=== PATIENT | female | born 1970 | race Hispanic/Latino ===

== ENCOUNTER 2020-11-11 11:33 | Outpatient (CLI) | payer BC ==
[2020-11-11 12:37] LABS: Hematocrit 24.2 % (30.3-42.9); Hemoglobin 8.4 gm/dl (10.1-14.3); Mean Corpuscular HGB Conc 35 % (30-34); Mean Corpuscular Volume 88 fl (79-97); Platelet Count 121 K/mm3 (140-440); Red Blood Count 2.75 M/mm3 (3.65-5.03); Red Cell Distribution Width 13.2 % (13.2-15.2)
[2020-11-11 12:57] LABS: Blood Urea Nitrogen 13 mg/dL (7-17); Calcium 9.1 mg/dL (8.4-10.2); Hemolysis Index 83
[2020-11-11 12:58] LABS: BUN/Creatinine Ratio 33
[2020-11-11 13:12] LABS: Alanine Aminotransferase < 5 units/L (7-56)
== END 2020-11-11 11:34 | disposition home or self-care (01) ==
LOC: LAB 11:33
PROVIDERS: ATTEND Surgery
DX: R10.32 Left lower quadrant pain (principal)
CPT/HCPCS: 36415; 80053; 85027

== ENCOUNTER 2020-12-08 10:46 | Outpatient (CLI) | payer BC ==
--- NOTE | 2020-12-08 12:59 | Magnetic Resonance Report ---
MRI CERVICAL SPINE 12/08/2020 INDICATION / CLINICAL INFORMATION: Neck pain. Radiculopathy.. COMPARISON: None available. FINDINGS: GENERAL OBSERVATIONS: Unenhanced MR images of the cervical spine were obtained. There is no evidence of acute abnormality. There is no evidence of spinal cord compression or intrinsic spinal cord abnormality. [id number] ANALYSIS: C7-T1: Unremarkable. C6-7: Minimal diffuse disc bulging. C5-6: Mild symmetric diffuse disc bulging. C4-5: Minimal diffuse disc bulging. C3-4: Unremarkable. C2-3: Unremarkable. CRANIO-CERVICAL JUNCTION: Unremarkable. BONE MARROW: No significant abnormality. PARASPINAL SOFT TISSUES: No significant abnormality. IMPRESSION: Minimal degenerative change. No evidence of stenosis or nerve root compression. Signer Name: Floyd De La Rosa MD Signed: 12/08/2020 12:54 PM Workstation Name: [id number]
== END 2020-12-08 10:47 | disposition home or self-care (01) ==
LOC: MRI 10:46
DX: M50.123 Cervical disc disorder at C6-C7 level with radiculopathy (principal); M50.122 Cervical disc disorder at C5-C6 level with radiculopathy; M50.121 Cervical disc disorder at C4-C5 level with radiculopathy; M47.812 Spondylosis without myelopathy or radiculopathy, cervical region
CPT/HCPCS: 72141

== ENCOUNTER 2021-01-12 17:44 | Emergency (ER) | payer BC ==
[2021-01-12] MEDS ORDERED: ASPIRIN 325 MG TAB PO ONE (18:03)
--- NOTE | 2021-01-12 18:27 | Emergency Department Report ---
ED Chest Pain HPI - General Chief Complaint: Chest Pain Stated Complaint: HEART RATE 128-167, BACK PAIN, CHEST PAIN Time Seen by Provider: 01/12/21 17:59 Source: patient Mode of arrival: Ambulatory Limitations: No Limitations - History of Present Illness Initial Comments: 50-year-old female, history of hypertension, diabetes, lung cancer status post lobectomy in 2019, anxiety, presents to ED with chest pain. Patient states she awoke from her nap feeling as if her heart was racing, with associated chest discomfort and shortness of breath. Patient also reports some nausea and diaphoresis. Patient states she checked her vitals with the pulse ox machine and found that her heart rate was in the 150s. Patient states she has had episodes in the past sinus tachycardia for no apparent reason. Patient currently denies any cough or fever, leg pain or swelling. Patient reports increased anxiety and the need to take her BuSpar over the last couple of days. Patient states she has been overwhelmed recently with the recent events in this country, including COVID-19, political and racial tensions. Patient has received both doses of [employer] COVID-19 vaccine. 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 MD Complaint: chest pain -: This evening Onset: awoke with symptoms Pain Location: substernal Pain Radiation: none Severity: moderate Quality: other ("Discomfort ") Consistency: constant Improves With: nothing Worsens With: nothing re: nausea, diaphoresis, dyspnea. denies: vomting Other Symptoms: palpitations. denies: cough, fever, syncope, leg swelling Treatments Prior to Arrival: none - Related Data Home Medications Medication Instructions Recorded Confirmed Last Taken AtorvaSTATin [Lipitor] 20 mg PO QHS 01/12/21 01/12/21 Unknown DULoxetine [Cymbalta] 60 mg PO QDAY 01/12/21 01/12/21 Unknown Gabapentin [Neurontin] 1,200 mg PO BID 01/12/21 01/12/21 Unknown Hyoscyamine Sulfate 0.125 mg PO TID 01/12/21 01/12/21 Unknown Insulin Degludec [Tresiba] 25 unit SQ QHS 01/12/21 01/12/21 Unknown Lispro Insulin [HumaLOG] 0 unit SQ ACHS 01/12/21 01/12/21 Unknown Losartan [Cozaar] 100 mg PO QDAY 01/12/21 01/12/21 Unknown Metoprolol [Lopressor TAB] 50 mg PO QDAY 01/12/21 01/12/21 Unknown Ondansetron (Nf) [Zofran TAB] 8 mg PO Q8HR PRN 01/12/21 01/12/21 Unknown Pantoprazole [Protonix] 40 mg PO QDAY 01/12/21 01/12/21 Unknown amLODIPine [Norvasc] 5 mg PO DAILY 01/12/21 01/12/21 Unknown busPIRone [Buspar] 5 mg PO BID 01/12/21 01/12/21 Unknown traZODone [Desyrel] 50 mg PO QHS 01/12/21 01/12/21 Unknown Allergies Allergy/AdvReac Type Severity Reaction Status Date / Time clonidine AdvReac Rash Verified 01/12/21 17:52 Heart Score - HEART Score History: Slightly suspicious EKG: Normal Age: 45-65 Risk factors: 1-2 risk factors Troponin: < normal limit HEART Score: 2 - EKG Read Time Time EKG Completed: 17:54 EKG Read Time: 17:59 ED Review of Systems ROS: Stated complaint: HEART RATE 128-167, BACK PAIN, CHEST PAIN Other details as noted in HPI Comment: All other systems reviewed and negative Constitutional: denies: chills, fever Respiratory: shortness of breath Cardiovascular: chest pain, palpitations Gastrointestinal: nausea Musculoskeletal: other (Denies leg pain and swelling) Psychiatric: anxiety ED Past Medical Hx - Past Medical History Hx Hypertension: Yes Hx Diabetes: Yes Additional medical history: sinus tachycardia - Social History Smoking Status: Never Smoker Substance Use Type: None - Medications Home Medications: Home Medications Medication Instructions Recorded Confirmed Last Taken Type AtorvaSTATin [Lipitor] 20 mg PO QHS 01/12/21 01/12/21 Unknown History DULoxetine [Cymbalta] 60 mg PO QDAY 01/12/21 01/12/21 Unknown History Gabapentin [Neurontin] 1,200 mg PO BID 01/12/21 01/12/21 Unknown History Hyoscyamine Sulfate 0.125 mg PO TID 01/12/21 01/12/21 Unknown History Insulin Degludec [Tresiba] 25 unit SQ QHS 01/12/21 01/12/21 Unknown History Lispro Insulin [HumaLOG] 0 unit SQ ACHS 01/12/21 01/12/21 Unknown History Losartan [Cozaar] 100 mg PO QDAY 01/12/21 01/12/21 Unknown History Metoprolol [Lopressor TAB] 50 mg PO QDAY 01/12/21 01/12/21 Unknown History Ondansetron (Nf) [Zofran TAB] 8 mg PO Q8HR PRN 01/12/21 01/12/21 Unknown History Pantoprazole [Protonix] 40 mg PO QDAY 01/12/21 01/12/21 Unknown History amLODIPine [Norvasc] 5 mg PO DAILY 01/12/21 01/12/21 Unknown History busPIRone [Buspar] 5 mg PO BID 01/12/21 01/12/21 Unknown History traZODone [Desyrel] 50 mg PO QHS 01/12/21 01/12/21 Unknown History ED Physical Exam - General Limitations: No Limitations General appearance: alert, in no apparent distress - Head Head exam: Present: atraumatic, normocephalic - Eye Eye exam: Present: normal appearance, EOMI - ENT ENT exam: Present: mucous membranes moist - Neck Neck exam: Present: normal inspection - Respiratory Respiratory exam: Present: normal lung sounds bilaterally, other (tachypnea present). Absent: respiratory distress - Cardiovascular Cardiovascular Exam: Present: normal rhythm, tachycardia - GI/Abdominal GI/Abdominal exam: Present: soft. Absent: distended, tenderness - Extremities Exam Extremities exam: Present: normal inspection. Absent: pedal edema, calf tenderness - Neurological Exam Neurological exam: Present: alert, oriented X3 - Psychiatric Psychiatric exam: Present: anxious - Skin Skin exam: Present: warm, dry, intact, normal color ED Course Vital Signs 01/12/21 01/12/21 01/12/21 17:49 18:20 18:32 Pulse Rate 139 H 121 H 119 H Respiratory 32 H 25 H 27 H Rate Blood Pressure 207/112 Blood Pressure 130/89 [Right] O2 Sat by Pulse 96 98 99 Oximetry 01/12/21 01/12/21 01/12/21 19:00 19:16 19:30 Pulse Rate 114 H 106 H 108 H Respiratory 19 37 H 25 H Rate Blood Pressure 142/95 143/91 149/97 Blood Pressure [Right] O2 Sat by Pulse 97 95 99 Oximetry 01/12/21 01/12/21 01/12/21 19:46 20:00 20:16 Pulse Rate 111 H 112 H 110 H Respiratory 25 H 24 21 Rate Blood Pressure 149/97 149/97 185/101 Blood Pressure [Right] O2 Sat by Pulse 98 94 94 Oximetry 01/12/21 01/12/21 01/12/21 20:30 20:46 21:00 Pulse Rate 111 H 113 H 110 H Respiratory 20 22 22 Rate Blood Pressure 170/97 185/101 157/86 Blood Pressure [Right] O2 Sat by Pulse 95 92 93 Oximetry 01/12/21 01/12/21 01/12/21 21:16 21:30 21:46 Pulse Rate 112 H 113 H 109 H Respiratory 20 25 H 21 Rate Blood Pressure 170/97 166/89 166/89 Blood Pressure [Right] O2 Sat by Pulse 93 92 94 Oximetry 01/12/21 01/12/21 01/12/21 22:00 22:16 22:30 Pulse Rate 115 H 119 H Respiratory 18 28 H Rate Blood Pressure 178/98 166/89 175/103 Blood Pressure [Right] O2 Sat by Pulse 96 97 96 Oximetry 01/12/21 01/12/21 01/12/21 22:46 22:51 23:00 Pulse Rate 120 H 124 H 113 H Respiratory 26 H 32 H Rate Blood Pressure 178/98 179/104 172/99 Blood Pressure [Right] O2 Sat by Pulse 97 93 Oximetry 01/12/21 01/12/21 01/13/21 23:16 23:30 00:19 Pulse Rate 111 H 104 H 89 Respiratory 24 31 H 18 Rate Blood Pressure 172/99 157/93 Blood Pressure 167/92 [Right] O2 Sat by Pulse 95 94 94 Oximetry ED Medical Decision Making - Lab Data Result diagrams: 01/12/21 18:09 01/12/21 18:15 - EKG Data -: EKG Interpreted by [facility] EKG shows normal: sinus rhythm, axis, intervals, QRS complexes, ST-T waves Rate: tachycardia (rate 121) - EKG Data Interpretation: no acute changes - Radiology Data Radiology results: report reviewed, image reviewed - Medical Decision Making 50-year-old female presents to ED with palpitations, chest discomfort, and shortness of breath. EKG shows sinus tachycardia without any ST changes. D- dimer is normal. O2 sats are normal. Patient is in no respiratory distress. Patient's tachypnea seems to be more hyperventilation. Patient reports that she has been more stressed and anxious lately. This is likely contributing to her symptoms. Patient given 1 L of fluid and IV Ativan. Repeat troponin has been ordered. If second troponin is normal and patient is feeling better I believe patient can be discharged home. Will fax her information to the [facility] for urgent cardiology follow-up. Patient has been signed out to Dr. Miller for dispo. - Differential Diagnosis Anxiety, ACS, PE Critical care attestation.: If time is entered above; I have spent that time in minutes in the direct care of this critically ill patient, excluding procedure time. ED Disposition Clinical Impression: Chest pain, Anxiety Disposition: DC-01 TO HOME OR SELFCARE Is pt being admited?: No Condition: Stable Instructions: Nonspecific Chest Pain, Adult, Managing Anxiety, Adult Referrals: PRIMARY [facility] [Referring] - 3-5 Days ADEN WEINSTEIN MD [Staff Physician] - 3-5 Days Forms: Work/School Release Form(ED)
[2021-01-12 18:29] LABS: Basophils # (Auto) 0.1 K/mm3 (0.0-0.1); Basophils % (Auto) 0.5 % (0.0-1.8); Eosinophils % (Auto) 0.3 % (0.0-4.3); Hematocrit 41.6 % (30.3-42.9); Hemoglobin 14.8 gm/dl (10.1-14.3); Lymphocytes # (Auto) 1.5 K/mm3 (1.2-5.4); Lymphocytes % (Auto) 13.3 % (13.4-35.0); Mean Corpuscular HGB Conc 36 % (30-34); Mean Corpuscular Volume 86 fl (79-97); Monocytes # (Auto) 0.6 K/mm3 (0.0-0.8); Platelet Count 249 K/mm3 (140-440); Red Blood Count 4.86 M/mm3 (3.65-5.03); Red Cell Distribution Width 13.4 % (13.2-15.2)
--- NOTE | 2021-01-12 18:33 | XRay Report ---
CHEST 1 VIEW INDICATION: sob COMPARISON: None FINDINGS: Support devices: None Heart: Normal Lungs/Pleura: No acute pulmonary or pleural findings. IMPRESSION: 1. No acute disease. Signer Name: Suhas Gibson MD Signed: 01/12/2021 6:28 PM Workstation Name: [id number]
[2021-01-12 18:43] LABS: INR 0.88 (0.87-1.13); Partial Thromboplastin Time 30.5 Sec. (24.2-36.6)
[2021-01-12 18:44] LABS: Blood Urea Nitrogen 13 mg/dL (7-17); Hemolysis Index 22
[2021-01-12 18:50] LABS: BUN/Creatinine Ratio 19
[2021-01-12] MEDS ORDERED: SODIUM CHLORIDE 0.9% 1000 ML 1,000 ML IV ONE (18:53)
[2021-01-12] MEDS ORDERED: LORazepam 2 MG/ML VIAL IV ONE (19:18)
[2021-01-12] MEDS ORDERED: atenoloL 25 MG TAB PO ONE (22:35)
[2021-01-12] MEDS ORDERED: diazePAM 2 MG TAB PO ONE (23:10)
[2021-01-13 00:20] VITALS: BP 167/92
--- NOTE | 2021-01-13 10:53 | Electrocardiograph Report ---
[facility] Test Date: 2021-01-12 Test Time: 17:54:53 Pat Name: KRYSTLE KRISHNA Department: Room: Gender: F Professional Development Manager: TANIA : 1970 Requested By: ED DOC Order Number: [id number] Reading MD: Beverly Vega Measurements Intervals [place] Rate: 121 P: 80 GA: 145 QRS: 10 QRSD: 86 T: 20 QT: 312 QTc: 443 Interpretive Statements Sinus tachycardia Probable left atrial enlargement Anterior infarct, old No previous ECG available for comparison Electronically Signed On 01-13-2021 10:53:24 EDT by Beverly Vega
== END 2021-01-13 00:19 | disposition home or self-care (01) ==
LOC: ED 17:44
DX: F41.9 Anxiety disorder, unspecified (principal); I10 Essential (primary) hypertension; E11.9 Type 2 diabetes mellitus without complications; Z79.899 Other long term (current) drug therapy
CPT/HCPCS: 36415; 71045; 80048; 83880; 84484; 85025; 85379; 85610; 85730; 93005; 96361; 96374; 99284; J2060; J7030

== ENCOUNTER 2021-02-12 02:04 | Emergency (ER) | payer BC, MEDICAID ==
[2021-02-12 03:44] VITALS: BP 206/114
== END 2021-02-12 07:45 ==
LOC: EEVIPCON 02:04 → ED 02:04
DX: R19.8 Other specified symptoms and signs involving the digestive system and abdomen (principal); Z53.21 Procedure and treatment not carried out due to patient leaving prior to being seen by health care provider

== ENCOUNTER 2021-05-30 19:04 | Emergency (ER) | payer BC, MEDICAID ==
[2021-05-30 22:55] VITALS: BP 145/90
[2021-05-30] MEDS ORDERED: CYCLOBENZAPRINE 10 MG TAB PO ONE (23:13)
[2021-05-30] MEDS ORDERED: KETOROLAC 30 MG/1 ML INJ IM ONE (23:13)
--- NOTE | 2021-05-30 23:17 | Emergency Department Report ---
ED General Adult HPI - General Chief complaint: Extremity Injury, Upper Stated complaint: RT SHOULDER FINGERS NUMB Time Seen by Provider: 05/30/21 23:00 Source: patient Mode of arrival: Ambulatory Limitations: No Limitations - History of Present Illness Initial comments: 50-year-old female patient with history of diabetes, fibromyalgia, and multilevel cervical disc herniations presents to the emergency department with complaints of right shoulder pain radiating to her right elbow with associated paresthesias in her right thumb/index finger/middle finger progressively worsening since she woke up this morning. There was no preceding fall, trauma, or injury. Patient was evaluated by her chiropractor, who sent her to urgent care, and urgent care center to the emergency department. Last MRI of the cervical spine was approximately 6 months ago. Patient has been going to a chiropractor but has not undergone surgery for her cervical disc issues. Patient is not anticoagulated. Patient took Gabapentin at home with limited relief. Denies headache, neck pain, chest pain, shortness of breath, back pain, vision changes, syncope, seizure, fever, skin color changes, extremity swelling. Denies all other complaints at this time. - Related Data Home Medications Medication Instructions Recorded Confirmed Last Taken AtorvaSTATin [Lipitor] 20 mg PO QHS 01/12/21 01/12/21 Unknown DULoxetine [Cymbalta] 60 mg PO QDAY 01/12/21 01/12/21 Unknown Gabapentin [Neurontin] 1,200 mg PO BID 01/12/21 01/12/21 Unknown Hyoscyamine Sulfate 0.125 mg PO TID 01/12/21 01/12/21 Unknown Insulin Degludec [Tresiba] 25 unit SQ QHS 01/12/21 01/12/21 Unknown Lispro Insulin [HumaLOG] 0 unit SQ ACHS 01/12/21 01/12/21 Unknown Losartan [Cozaar] 100 mg PO QDAY 01/12/21 01/12/21 Unknown Metoprolol [Lopressor TAB] 50 mg PO QDAY 01/12/21 01/12/21 Unknown Ondansetron (Nf) [Zofran TAB] 8 mg PO Q8HR PRN 01/12/21 01/12/21 Unknown Pantoprazole [Protonix] 40 mg PO QDAY 01/12/21 01/12/21 Unknown amLODIPine [Norvasc] 5 mg PO DAILY 01/12/21 01/12/21 Unknown busPIRone [Buspar] 5 mg PO BID 01/12/21 01/12/21 Unknown traZODone [Desyrel] 50 mg PO QHS 01/12/21 01/12/21 Unknown Previous Rx's Medication Instructions Recorded Last Taken Type Lidocaine [Lidoderm] 1 each TP BID #20 adh..patch 05/30/21 Unknown Rx Naproxen 500 mg PO BID #20 tablet 05/30/21 Unknown Rx Allergies Allergy/AdvReac Type Severity Reaction Status Date / Time clonidine AdvReac Rash Verified 01/12/21 17:52 ED Review of Systems ROS: Stated complaint: RT SHOULDER FINGERS NUMB Other details as noted in HPI Other: GENERAL: Negative for fever, chills, weight change, anorexia, fatigue. ENT: Negative for ear pain, difficulty hearing, sore throat, nasal congestion, epistaxis. CARDIOVASCULAR: Negative for chest pain, palpitations, lower extremity swelling. PULMONARY: Negative for cough, dyspnea, wheezing, orthopnea, cyanosis. GASTROINTESTINAL: Negative for abdominal pain, nausea, vomiting, diarrhea, con stipation. MUSCULOSKELETAL: Positive for right shoulder pain. NEUROLOGICAL: Positive for paresthesias. INTEGUMENTARY: Negative for erythema, rash, diaphoresis, laceration, ecchymosis. HEMATOLOGICAL: Negative for hemoptysis, hematemesis, hematochezia, hematuria. PSYCHIATRIC: Negative for hallucinations, suicidal ideation, homicidal ideation, anxiety, depression. ED Past Medical Hx - Past Medical History Hx Hypertension: Yes Hx Diabetes: Yes Additional medical history: sinus tachycardia - Surgical History Hx Cholecystectomy: Yes Additional Surgical History: Hysterectomy - Social History Smoking Status: Never Smoker Substance Use Type: None - Medications Home Medications: Home Medications Medication Instructions Recorded Confirmed Last Taken Type AtorvaSTATin [Lipitor] 20 mg PO QHS 01/12/21 01/12/21 Unknown History DULoxetine [Cymbalta] 60 mg PO QDAY 01/12/21 01/12/21 Unknown History Gabapentin [Neurontin] 1,200 mg PO BID 01/12/21 01/12/21 Unknown History Hyoscyamine Sulfate 0.125 mg PO TID 01/12/21 01/12/21 Unknown History Insulin Degludec [Tresiba] 25 unit SQ QHS 01/12/21 01/12/21 Unknown History Lispro Insulin [HumaLOG] 0 unit SQ ACHS 01/12/21 01/12/21 Unknown History Losartan [Cozaar] 100 mg PO QDAY 01/12/21 01/12/21 Unknown History Metoprolol [Lopressor TAB] 50 mg PO QDAY 01/12/21 01/12/21 Unknown History Ondansetron (Nf) [Zofran TAB] 8 mg PO Q8HR PRN 01/12/21 01/12/21 Unknown History Pantoprazole [Protonix] 40 mg PO QDAY 01/12/21 01/12/21 Unknown History amLODIPine [Norvasc] 5 mg PO DAILY 01/12/21 01/12/21 Unknown History busPIRone [Buspar] 5 mg PO BID 01/12/21 01/12/21 Unknown History traZODone [Desyrel] 50 mg PO QHS 01/12/21 01/12/21 Unknown History Lidocaine [Lidoderm] 1 each TP BID #20 adh..patch 05/30/21 Unknown Rx Naproxen 500 mg PO BID #20 tablet 05/30/21 Unknown Rx ED Physical Exam - General Limitations: No Limitations - Other Other exam information: General: Awake, appropriately interactive, no acute distress. Neck: Supple. Full range of motion intact. No posterior cervical spine tenderness. Cardiovascular: Normal peripheral perfusion. Pulmonary: No respiratory distress. Patient is speaking normally without use of accessory muscles. Skin: No apparent rashes or lesions. Neurological: No facial asymmetry. Speech is clear. Follows commands. Patient is alert and oriented. Ambulatory without assistance. No evidence of Ozzy's syndrome. Musculoskeletal: Tenderness to palpation throughout the right scapular area and along the distribution of the right trapezius muscle with limited range of motion in all directions secondary to pain. No obvious deformity or dislocation. Diminished sensation to light touch along right C6 nerve distribution. Strong radial pulse. Brisk capillary refill. Psych: Cooperative. Appropriate mood and affect. ED Course Vital Signs 05/30/21 22:53 Temperature 98.5 F Pulse Rate 99 H Respiratory 16 Rate Blood Pressure 145/90 [Left] O2 Sat by Pulse 100 Oximetry ED Medical Decision Making - Radiology Data [facility] [address] [place] [address] Magnetic Resonance Report Signed Patient: KRYSTLE GAYTAN MR#: [id number] : 1970 Acct:[id number] Age/Sex: 50 / F ADM Date: 12/08/20 Loc: MRI Attending Dr: MARILEE HUNT MD Ordering Physician: MARILEE HUNT Date of Service: 12/08/20 Procedure(s): MR cervical spine wo con Accession Number(s): [id number] cc: DIANA FARLEY MRI CERVICAL SPINE 12/08/2020 INDICATION / CLINICAL INFORMATION: Neck pain. Radiculopathy.. COMPARISON: None available. FINDINGS: GENERAL OBSERVATIONS: Unenhanced MR images of the cervical spine were obtained. There is no evidence of acute abnormality. There is no evidence of spinal cord compression or intrinsic spinal cord abnormality. [id number] ANALYSIS: C7-T1: Unremarkable. C6-7: Minimal diffuse disc bulging. C5-6: Mild symmetric diffuse disc bulging. C4-5: Minimal diffuse disc bulging. C3-4: Unremarkable. C2-3: Unremarkable. CRANIO-CERVICAL JUNCTION: Unremarkable. BONE MARROW: No significant abnormality. PARASPINAL SOFT TISSUES: No significant abnormality. IMPRESSION: Minimal degenerative change. No evidence of stenosis or nerve root compression. Signer Name: Floyd De La Rosa MD Signed: 12/08/2020 12:54 PM Workstation Name: [id number] Transcribed By: MUNA Dictated By: Floyd De La Rosa MD Electronically Authenticated By: Floyd De La Rosa MD Signed Date/Time: 12/08/20 1254 DD/ 1250 TD/TT: - Medical Decision Making Differential diagnosis including but not limited to: sprain, strain, fracture, contusion, dislocation, disc herniation, cervical radiculopathy, cervical spine stenosis, cervical artery dissection, arterial occlusion, deep vein thrombosis Patient presents to the emergency department with complaints of easily reprodu cible right shoulder pain with associated paresthesias along the C6 nerve distribution. Review of past medical records indicates patient has undergone cervical spine MRI which showed multilevel cervical disc herniation. Patient is hemodynamically stable, no pulse deficit, ambulatory without assistance, moving all extremities spontaneously, with no preceding trauma or injury. Symptoms have been present for > 12 hours. Presentation is not suggestive of cerebrovascular event or spinal cord compression. It was explained to the patient that she will likely require outpatient MRI in the setting of progressively worsening cervical radiculopathic symptoms. Patient will be treated symptomatically and referred to maintenance specialist for close outpatient follow-up. Patient expressed understanding and is agreeable to plan of care. Strict return precautions provided. History, exam, diagnostic testing, and current condition do not suggest worrisome pathology to warrant further testing, continued ED treatment, admission, or surgical evaluation at this point. Given the low probability of a significant medical illness, it would be more likely to result in harm than benefit to perform further testing at this stage. Discussed findings, presumptive diagnosis, need for follow-up and specific signs/symptoms that should prompt immediate return to the emergency department. Instructions were explained in detail to the patient in addition to giving written discharge information. Patient expressed understanding and was given the opportunity to ask questions, all of which were satisfactorily answered prior to discharge home. Critical care attestation.: If time is entered above; I have spent that time in minutes in the direct care of this critically ill patient, excluding procedure time. ED Disposition Clinical Impression: Cervical disc herniation Right shoulder pain Qualifiers: Chronicity: acute Qualified Code(s): M25.511 - Pain in right shoulder Disposition: HOME / SELF CARE / HOMELESS Is pt being admited?: No Does the pt Need Aspirin: No Condition: Stable Instructions: Neuropathic Pain, Herniated Disk Additional Instructions: Take Tylenol every 4 hours as needed for pain. Take Naprosyn twice daily with food as needed for pain. Use Lidoderm patches to affected area as needed for pain. Continue all other medications as previously prescribed. Follow-up with chiropractor as previously directed. You may also benefit from a referral to physical therapy from your primary care provider. Follow-up with [facility] this week. Call tomorrow to schedule an appointment. The specialists at [facility] can help you coordinate an outpatient MRI as clinically indicated. Return to the emergency department immediately for new or worsening symptoms. Specifically, return to the emergency department for headache, neck pain, fever, worsening pain, upper extremity swelling, skin color changes, loss of sensation, paralysis, weakness, or any other concerns. Prescriptions: Lidocaine [Lidoderm] 1 each TP BID #20 adh..patch Naproxen 500 mg PO BID #20 tablet Referrals: [facility] [Provider Group] - 3-5 Days Forms: Work/School Release Form(ED) Time of Disposition: 23:30
== END 2021-05-31 00:15 | disposition home or self-care (01) ==
LOC: ED 19:04
DX: M50.20 Other cervical disc displacement, unspecified cervical region (principal); M25.511 Pain in right shoulder; E11.9 Type 2 diabetes mellitus without complications; Z90.49 Acquired absence of other specified parts of digestive tract; Z90.710 Acquired absence of both cervix and uterus; Z88.8 Allergy status to other drugs, medicaments and biological substances; Z79.899 Other long term (current) drug therapy; Z79.4 Long term (current) use of insulin
CPT/HCPCS: 96372; 99282; J1885